=== PATIENT | female | born 1970 | race Caucasian/White ===

== ENCOUNTER 2021-04-04 13:48 | Emergency (ER) | payer BC, SELFPAY ==
[2021-04-04] VITALS (7 sets, daily range): BP systolic 91–106; BP diastolic 58–67; PULSE 84–103; RESP 15–20; TEMP 39.5; O2SAT 95–98; BMI 22.1
--- NOTE | 2021-04-04 14:27 | XR_ITS ---
WS: [id number] Portable AP upright chest, 04/04/2021 Clinical Data: COVID/SOB Comparison: PA and lateral chest, 11/07/2015. Findings: No nodules, masses or effusions are seen. The heart is normal. The pulmonary vascularity is not increased. No pneumonia or pneumothorax is seen. Monitor leads are on the chest wall. XR/XR chest 1V portable [id number] Impression: Negative chest.
--- NOTE | 2021-04-04 15:08 | ED_ITS ---
HPI - COVID General: Chief Complaint: COVID symptoms Stated Complaint: SOB, COVID positive Time Seen by Provider: 04/04/21 15:01 Triage information: Has fever, cough or shortness of breath . Exposure to COVID + person last 14 days History of Present Illness: HPI Narrative: This patient is a 50-year-old female who is 19 and from Covid diagnosis. Presents to the emergency department for continued intermittent fevers fatigue and body aches occasional shortness of breath. Patient's pulse ox is 98% on room air does not appear to be overtly short of breath at this time. Temperature on arrival 103.1. Will do medical evaluation treat as needed. Patient has no specific cough or congestion on exam. MD complaint: known COVID positive Prior covid testing: yes, results known COVID 19 common symptoms: positive fever(s), chills, dyspnea, fatigue and body aches; negative headache(s), throat pain, nausea or vomiting COVID 19 other sytmptoms: negative chest pain Onset (ago): day(s) (10) Severity: moderate COVID Results: No Data to Display Review of Systems General: Reports: 10 or more systems reviewed and unremarkable except in HPI and below Const: Reports: fever(s), chills, body aches and fatigue Eyes: Denies: change in vision or blurry vision ENMT: Denies: throat pain, hoarseness or mouth pain Card: Denies: chest pain, palpitations, irregular heart rhythm, edema, swelling of feet/ankles or lightheadedness Resp: Reports: dyspnea GI: Denies: abdominal pain, nausea or vomiting : Denies: flank pain, difficulty voiding, dysuria, urinary frequency, urinary urgency or urinary hesitancy Musc: Reports: joint pain; Denies: neck pain, back pain, extremity pain, extremity swelling, joint swelling, joint redness, joint warmth or limited range of motion Skin/Breast: Denies: rash, pruritus, erythema or skin tenderness Neuro: Denies: headache(s), numbness in extremities or weakness in extremities Psych: Denies: anxiety or depression Physical Exam Const: COMMON NORMALS: no acute distress, average body habitus, patient oriented x3, no limitations, healthy appearing, alert and well nourished HENMT: COMMON NORMALS: normocephalic, atraumatic, hearing grossly normal bilaterally, external ears normal, EAC's normal, TM's normal bilaterally, Normal external nose present, Normal nasal mucous membranes and turbinates present, moist oral mucous membranes, oropharynx normal, dentition normal and gingiva normal HEAD & SCALP: normocephalic and atraumatic NOSE: Normal external nose present and Normal nasal mucous membranes and turbinates present EXTERNAL EAR: Yes external ears normal EXTERNAL AUDITORY CANAL: EAC's normal TYMPANIC MEMBRANE: TM's normal bilaterally Neck/C-Spine: COMMON NORMALS: full ROM, no lymphadenopathy, supple, no meningeal signs, no JVD, Thyroid normal and No carotid bruits THYROID: Thy roid normal Chest: COMMONS NORMALS: normal inspection of the chest, normal palpation of entire chest wall, normal inspection of the breasts and normal palpation of the breasts Breast/axilla inspection: Yes normal inspection of the breasts BREAST/AXILLA PALPATION: Yes normal palpation of the breasts Resp: COMMON NORMALS: normal respiratory effort, No retractions, No use of accessory muscles, clear to auscultation bilaterally and percussion normal AUSCULTATION: clear to auscultation bilaterally PERCUSSION: percussion normal Cardio: COMMON NORMALS: no JVD, regular rate, regular rhythm, S1 normal heart sound present, S2 normal heart sound present, No gallops present (Cardio), No clicks present (Cardio), No murmurs present (Cardio), No rub (Cardio) and Peripheral pulses 2+ throughout RATE: regular rate RHYTHM: regular rhythm HEART SOUNDS: S1 normal heart sound present and S2 normal heart sound present PERIPHERAL PULSES: Peripheral pulses 2+ throughout GI: COMMON NORMALS: Normal to inspection, nondistended, normoactive bowel sounds present, Soft to palpation, non-tender, No hepatosplenomegaly present, no masses and no bruits PALPATION: Yes Soft to palpation and Yes No hepatosplenomegaly present : COMMON NORMALS: Yes no CVA tenderness, Yes normal external appearance, Yes normal appearance of the vagina, Yes normal appearance of the cervix, Yes normal bimanual exam, Yes No adnexal tenderness and Yes no masses BLADDER/KIDNEY EXAM: Yes no CVA tenderness BIMANUAL EXAM - VAGINA & UTERUS: Yes normal bimanual exam Back/Pelvis: COMMON NORMALS: no CVA tenderness, thoracic and lumbar spine normal to inspection, no thoracic nor lumbar tenderness, thoraco-lumbar ROM normal and straight leg raise negative bilaterally Extremity: COMMON NORMALS: normal to inspection, full ROM, capillary refill normal, no joint enlargement, no clubbing, cyanosis or edema, no calf tenderness and no pedal edema Neuro: COMMON NORMALS: patient oriented x3 SENSORIUM/ORIENTATION: Yes alert MENINGEAL SIGNS: Yes no meningeal signs Course Reevaluation(s): Reevaluation #1: Patient appears to have a urinary tract infection. Patient was given IV Rocephin in the emergency department be discharged home on doxycycline. Patient is encouraged p.o. fluids. Take all medications as instructed. Continue to self quarantine. Follow-up with primary care physician in 2 to 3 days. Return to the emergency department symptoms fail to improve or worsen. Time: 17:52 Vital Signs: Vital signs: Vital Signs Temperature 103.1 F H 04/04/21 14:18 Pulse Rate 84 04/04/21 17:36 Respiratory Rate 16 04/04/21 17:36 Blood Pressure 106/59 04/04/21 17:00 Pulse Oximetry 95 04/04/21 17:36 MDM - COVID MDM Narrative: Medical decision making narrative: This patient is a 50-year-old female who is 19 and from Covid diagnosis. Presents to the emergency department for continued intermittent fevers fatigue and body aches occasional shortness of breath. Patient's pulse ox is 98% on room air does not appear to be overtly short of breath at this time. Temperature on arrival 103.1. Will do medical evaluation treat as needed. Patient has no specific cough or congestion on exam. Patient appears to have a urinary tract infection. Patient was given IV Rocephin in the emergency department be discharged home on doxycycline. Patient is encouraged p.o. fluids. Take all medications as instructed. Continue to self quarantine. Follow-up with primary care physician in 2 to 3 days. Return to the emergency department symptoms fail to improve or worsen. Differential Diagnosis: Differential diagnosis: Likely COVID 19 and pneumonia Medical Records: Attestation: I reviewed the patient's medical records. Lab Data: Attestation: I reviewed the patient's lab results. Labs: Lab Results 04/04/21 04/04/21 04/04/21 Range/Units 15:50 15:50 15:50 WBC 5.8 (4.0-10.0) 10^3/ uL RBC 4.53 (4.1-5.3) 10^6/u L Hgb 13.7 (11.5-15.3) g/dL Hct 40.3 (37.0-47.0) % MCV 89.0 (81-99) fL MCH 30.2 (28.0-34.0) pg MCHC 34.0 (30.0-36.0) g/dL RDW 12.8 (12.1-15.1) % Plt Count 242 (130-400) 10^3/c mm MPV 10.0 (7.4-10.4) fL Neut % (Auto) 62.5 % Lymph % (Auto) 27.8 % [place] % (Auto) 8.3 % Eos % (Auto) 0.7 % Baso % (Auto) 0.5 % Neut # (Auto) 3.62 (1.8-7.7) 10^3/u L Lymph # (Auto) 1.6 (0.8-4.8) 10^3/u L [place] # (Auto) 0.5 (0.2-0.9) 10^3/u L Eos # (Auto) 0.0 (0.0-0.8) 10^3/u L Baso # (Auto) 0.0 (0.0-0.1) 10^3/u L Nucleated RBC % (a uto) 0 % Nucleated RBCs # 0.0 /100WBC D-Dimer (0-0.59) ug/mIFE U Sodium 133 L (136-145) mmol/L Potassium 4.1 (3.5-5.1) mmol/L Chloride 97 L (98-107) mmol/L Carbon Dioxide 22 (22-29) mmol/L Anion Gap 18.1 (5-19) BUN 11 (6-20) mg/dL Creatinine 0.6 (0.5-0.9) mg/dL GFR Calculation 105.8 (90-130) mL/min Glucose 84 (65-115) mg/dL Calculated Osmolal ity 275 L (285-295) mOsm/k g Lactic Acid 0.9 (0.5-2.2) mmol/L Calcium 8.2 L (8.5-10.5) mg/dL Total Bilirubin 0.3 (0.15-1.2) mg/dL AST 21 (0-32) U/L ALT 15 (0-33) U/L Alkaline Phosphata se 89 (35-105) IU/L C-Reactive Protein 6.8 H (0.0-4.9) mg/L NT-Pro-B Natriuret Pep 10 (0-125) pg/mL Total Protein 6.7 (6.6-8.7) g/dL Albumin 4.1 (3.5-5.2) g/dL Globulin 2.6 (1.3-4.6) g/dL Procalcitonin 0.05 (0-0.5) ng/mL Urine Color (Yellow) Urine Appearance (CLEAR) Urine pH (5-7) Ur Specific Gravit y (1.005-1.030) Urine Protein (Negative) Urine Glucose (UA) (Normal) Urine Ketones (Negative) Urine Blood (Negative) Urine Nitrate (Negative) Urine Bilirubin (Negative) Urine Urobilinogen (Negative) mg/dL Ur Leukocyte Shonna ase (Negative) Urine RBC (0-2) /hpf Urine WBC (0-5) /hpf Ur Squamous Epith Cells (0-5) /hpf Amorphous Sediment Urine Bacteria (NONE) /hpf Influenza Type A A g (Negative) Influenza Type B A g (Negative) 04/04/21 04/04/21 04/04/21 Range/Units 15:55 15:58 17:30 WBC (4.0-10.0) 10^3/ uL RBC (4.1-5.3) 10^6/u L Hgb (11.5-15.3) g/dL Hct (37.0-47.0) % MCV (81-99) fL MCH (28.0-34.0) pg MCHC (30.0-36.0) g/dL RDW (12.1-15.1) % Plt Count (130-400) 10^3/c mm MPV (7.4-10.4) fL Neut % (Auto) % Lymph % (Auto) % [place] % (Auto) % Eos % (Auto) % Baso % (Auto) % Neut # (Auto) (1.8-7.7) 10^3/u L Lymph # (Auto) (0.8-4.8) 10^3/u L [place] # (Auto) (0.2-0.9) 10^3/u L Eos # (Auto) (0.0-0.8) 10^3/u L Baso # (Auto) (0.0-0.1) 10^3/u L Nucleated RBC % (a uto) % Nucleated RBCs # /100WBC D-Dimer <= 0.27 (0-0.59) ug/mIFE U Sodium (136-145) mmol/L Potassium (3.5-5.1) mmol/L Chloride (98-107) mmol/L Carbon Dioxide (22-29) mmol/L Anion Gap (5-19) BUN (6-20) mg/dL Creatinine (0.5-0.9) mg/dL GFR Calculation (90-130) mL/min Glucose (65-115) mg/dL Calculated Osmolal ity (285-295) mOsm/k g Lactic Acid (0.5-2.2) mmol/L Calcium (8.5-10.5) mg/dL Total Bilirubin (0.15-1.2) mg/dL AST (0-32) U/L ALT (0-33) U/L Alkaline Phosphata se (35-105) IU/L C-Reactive Protein (0.0-4.9) mg/L NT-Pro-B Natriuret Pep (0-125) pg/mL Total Protein (6.6-8.7) g/dL Albumin (3.5-5.2) g/dL Globulin (1.3-4.6) g/dL Procalcitonin (0-0.5) ng/mL Urine Color Yellow (Yellow) Urine Appearance Clear (CLEAR) Urine pH 6 (5-7) Ur Specific Gravit y 1.010 (1.005-1.030) Urine Protein Neg (Negative) Urine Glucose (UA) Norm (Normal) Urine Ketones Negative (Negative) Urine Blood 3+ H (Negative) Urine Nitrate Negative (Negative) Urine Bilirubin Neg (Negative) Urine Urobilinogen Norm (Negative) mg/dL Ur Leukocyte Shonna ase 2+ H (Negative) Urine RBC 25-40 H (0-2) /hpf Urine WBC 15-25 H (0-5) /hpf Ur Squamous Epith Cells 10-15 H (0-5) /hpf Amorphous Sediment Not Reportable Urine Bacteria 1+ H (NONE) /hpf Influenza Type A A g Negative (Negative) Influenza Type B A g Negative (Negative) Imaging Data: CXR: Attestation: I personally reviewed and interpreted this imaging study as follows: Radiologist's impression: Impression: Negative chest. COVID Results: No Data to Display Discharge Plan Discharge Patient Disposition: Home Clinical Impression: Viral infection, COVID-19, UTI (urinary tract infection) Condition: Stable Prescriptions: New doxycycline hyclate 100 mg capsule 100 mg PO BID 7 Days Qty: 14 RF: 0 No Action atorvastatin 40 mg tablet 40 mg PO DAILY RF: 0 Discharge Orders: Discharge ED (Routine); Ordered 04/04/21 Ordered By: Maycol Taylor Referrals: Mickey Monsivais DO [Primary Care Provider] - Discharge Diet: Advance as tolerated Discharge Activity: Increase activity as tolerated Patient Instructions: Opioid Safety Activity Restrictions/Additional Instructions: Patient appears to have a urinary tract infection. Patient was given IV Rocephin in the emergency department be discharged home on doxycycline. Patient is encouraged p.o. fluids. Take all medications as instructed. Continue to self quarantine. Follow-up with primary care physician in 2 to 3 days. Return to the emergency department symptoms fail to improve or worsen. Coding Level of Care Code ED Plate Finisher for Cheo Fwklaus Exam Comprehensive
[2021-04-04] MEDS: sodium chloride 0.9% 1,000 ML 999 ML IV (15:30)
[2021-04-04] MEDS: ibuprofen 600 mg Tablet PO (15:30)
[2021-04-04] MEDS: dexamethasone 10 mg/mL INJ IM (15:30)
[2021-04-04 16:06] LABS: Basophils % 0.5 %; Eosinophils % 0.7 %; Hematocrit 40.3 % (37.0-47.0); Hemoglobin 13.7 g/dL (11.5-15.3); Lymphocytes # 1.6 10^3/uL (0.8-4.8); Lymphocytes % 27.8 %; Mean Corpuscular Hemoglobin 30.2 pg (28.0-34.0); Monocytes # 0.5 10^3/uL (0.2-0.9); Monocytes % 8.3 %; Neutrophils # 3.62 10^3/uL (1.8-7.7); Neutrophils % 62.5 %; Nucleated Red Blood Cells % 0 %; Platelet Count 242 10^3/cmm (130-400); Red Blood Count 4.53 10^6/uL (4.1-5.3); Red Cell Distribution Width 12.8 % (12.1-15.1); White Blood Count 5.8 10^3/uL (4.0-10.0)
[2021-04-04 16:38] LABS: Lactic Sepsis W/Reflex 0.9 mmol/L (0.5-2.2)
[2021-04-04 16:38] LABS: D Dimer <= 0.27 ug/mIFEU (0-0.59)
[2021-04-04 16:48] LABS: NT Pro B Type Natriuretic Pept 10 pg/mL (0-125); Procalcitonin 0.05 ng/mL (0-0.5)
[2021-04-04 16:59] LABS: Alanine Aminotransferase 15 U/L (0-33); Albumin Level 4.1 g/dL (3.5-5.2); Alkaline Phosphatase 89 IU/L (35-105); Anion Gap 18.1 (5-19); Aspartate Amino Transferase 21 U/L (0-32); Blood Urea Nitrogen 11 mg/dL (6-20); C Reactive Protein 6.8 mg/L (0.0-4.9); Calcium 8.2 mg/dL (8.5-10.5); Carbon Dioxide 22 mmol/L (22-29); Chloride 97 mmol/L (98-107); Globulin 2.6 g/dL (1.3-4.6); Glomerular Filtration Rate 105.8 mL/min (90-130); Glucose 84 mg/dL (65-115); Osmolality Calculated 275 mOsm/kg (285-295); Potassium 4.1 mmol/L (3.5-5.1); Sodium 133 mmol/L (136-145); Total Bilirubin 0.3 mg/dL (0.15-1.2); Total Protein 6.7 g/dL (6.6-8.7)
[2021-04-04 17:01] LABS: Influenza A by IFA Negative (Negative); Influenza B by IFA Negative (Negative)
[2021-04-04 17:48] LABS: Urine Appearance Clear (CLEAR); Urine Color Yellow (Yellow); pH Urine 6 (5-7)
[2021-04-04 17:49] LABS: Add Urine Microscopic? YES; Bilirubin Urine Neg (Negative); Blood Urine 3+ (Negative); Glucose Urine UA Norm (Normal); Ketones Urine Negative (Negative); Leukocyte Esterase Urine 2+ (Negative); Nitrate Urine Negative (Negative); Protein Urine Neg (Negative); Urobilinogen Urine Norm (Negative)
[2021-04-04 17:50] LABS: Add Urine Culture? Yes; Bacteria Urine 1+ /hpf; RBC Urine 25-40 /hpf (0-2); WBC Urine 15-25 /hpf (0-5)
[2021-04-04] MEDS: cefTRIAXone 1,000 MG in lidocaine 1% 2.1 ML 2.1 MG IM (18:01)
== END 2021-04-04 18:15 | disposition home or self-care (01) ==
PROVIDERS: Physician Assistant; Emergency Provider Emergency Medicine; PCP Electrodiagnostic Medicine
DX: U07.1 COVID-19 (principal); Z20.822 Contact with and (suspected) exposure to COVID-19; B34.9 Viral infection, unspecified; N39.0 Urinary tract infection, site not specified
CPT/HCPCS: 71045; 80053; 81001; 83605; 83880; 84145; 85025; 85378; 86140; 87040; 87086; 87804; 96360; 99284; J0696; J1100; J7030

== ENCOUNTER 2021-08-20 11:25 | Emergency (ER) | payer BC, SELFPAY ==
[2021-08-20 11:40] VITALS: BP 120/76; PULSE 84; RESP 18; TEMP 36.8; O2SAT 97; BMI 23.1
[2021-08-20 11:47] VITALS: BP 120/76; PULSE 83; RESP 18; TEMP 36.8; O2SAT 97
--- NOTE | 2021-08-20 12:16 | ED_ITS ---
HPI - General Adult General: Chief complaint: Skin/Abscess/Foreign Body Stated complaint: RIGHT ARM GROWTH Time Seen by Provider: 08/20/21 11:45 History of Present Illness: HPI narrative: CC: R armpit draining abscess HPI: [51]yo patient w/ no PMH presenting to to the ED with R armpit draining abscess pain despite lancing 3 days ago. Patient first noticed the abscess 2 weeks ago has been gradually growing in the armpit. 2 days ago, patient went to an urgent care and had an I&D performed on Friday. Since then, patient was started on Bactrim for the last 2 days however has had persistent induration and drainage. No hx of hydranitis suppurativa or other hx of abscess. Today, the patient denies fever/chill, nausea/vomiting, chest pain, SOB, palpitations, GI/ complaints. No hx of immunocompromised, DM, transplant, or asplenia. Onset: 2 weeks ago Duration: 2 weeks Location: R armpit Severity: mild/moderate Review of Systems Narrative: Constitutional: No fever, no chills. HEENT: No vision changes CV: No chest pain, no palpitations PULM: No cough, no dyspnea. GI: No abdominal pain, no N/V/D. : No dysuria MSKEL: No muscle pain SKIN: +R armpit abscess NEURO: No headache, no focal weakness. HEME: No visible bruises PSYCH: Normal mood Physical Exam Narrative: EXAM NARRATIVE: Head: Atraumatic Eyes: PERRL, conjunctiva without injection ENT: Mucous membrane moist NECK: Supple without lymphadenopathy LUNGS: LCTAB CV: RRR ABDOMEN: Soft, nontender EXTREMITY: Normal ROM SKIN: +R armpit abscess swith central drainage NEURO: Awake and alert. No focal motor deficits. PSYCH: Normal mood and affect. Procedures Abscess I/D Site: upper extremity Side (if applicable): right Local Anesthetic: lidocaine 1% Amount of anesthesia used (mL): 5 Technique: incised with #11 blade Amount of fluid expressed (mL): 2 Irrigation: No Packing used?: none Course Vital Signs: Vital signs: Vital Signs Temperature 98.2 F 08/20/21 11:47 Pulse Rate 83 08/20/21 11:47 Respiratory Rate 18 08/20/21 11:47 Blood Pressure 120/76 08/20/21 11:47 Pulse Oximetry 97 08/20/21 11:47 MDM - General Adult MDM Narrative: Medical decision making narrative: [51] yo patient p/w persistent R arm pit abscess and drainage despite I&D 2 days ago and ABX. No suspicion for overlying cellulitis. Given History, Exam, and Workup I have low suspicion for Cellulitis, Necrotizing Fasciitis, Pyomyositis, Sporotrichosis, Osteomyelitis or other emergent problems as a cause for this presentation. POCUS revealed still multiple areas of abscess amenable to drainage Interventions: Patient?s abscess has been incised with acceptable resolution. Please see the procedure note for information. Patient is instructed to continue taking the full course of Bactrim as prescribed on Friday. Disposition: Discharge. Advised to follow up with a primary care physician in 48 hours. The patient given return precautions for any worsening symptoms, fever/nausea, vomiting or any new or concerning issues. Discharge Plan Discharge Patient Disposition: Home Clinical Impression: Abscess Condition: Stable Prescriptions: No Action atorvastatin 40 mg tablet 40 mg PO DAILY RF: 0 Discharge Orders: Discharge ED (Routine); Ordered 08/20/21 Ordered By: Elke Lu Referrals: Veronica Dawkins PA [Primary Care Provider] - Discharge Diet: Advance as tolerated Discharge Activity: Resume usual activity Patient Instructions: Abscess (ED) Activity Restrictions/Additional Instructions: Come back to the emergency room if your abscess worsens, have any fever or chills, any new or concerning complaints. Coding Level of Care Code ED Government Documents Librarian for Cheo Rodriguez
== END 2021-08-20 12:23 | disposition home or self-care (01) ==
PROVIDERS: Emergency Provider Emergency Medicine; PCP Physician Assistant
DX: L02.413 Cutaneous abscess of right upper limb (principal)
CPT/HCPCS: 10060; 99282

== ENCOUNTER 2022-03-07 06:42 | Outpatient (CLI) | payer BC, SELFPAY ==
--- NOTE | 2022-03-07 | USCV_ITS ---
Zoila Armendariz Age: 51 Gender: F : 1970 Exam Date: 03/07/2022 06:55 Ordering Phys: Paul Johnson MD Technologist: Exam Location: [facility] Indication: palpitations BP: 105 / 60 HR: 69 Rhythm: Sinus Technical Quality: Adequate MEASUREMENTS (Male / Female) Normal Values 2D ECHO LV Diastolic Diameter PLAX 4.0 cm 4.2 - 5.9 / 3.9 - 5.3 cm LV Systolic Diameter PLAX 2.5 cm IVS Diastolic Thickness 0.9 cm 0.6 - 1.0 / 0.6 - 0.9 cm IVS Systolic Thickness 1.3 cm LVPW Diastolic Thickness 1.0 cm 0.6 - 1.0 / 0.6 - 0.9 cm LVPW Systolic Thickness 1.1 cm LVOT Diameter 2.0 cm LV Ejection Fraction 2D Teich 69.1 % LV Ejection Fraction MOD 2C 72.3 % LV Ejection Fraction 2C AL 71.6 % LA Diameter 3.1 cm IVC Diameter 1.4 cm M-MODE Aortic Annulus Diameter 2.9 cm LA Ao Ratio MM 1.2 MV E Point Septal Separation 0.8 cm DOPPLER AV Peak Velocity 109.0 cm/s LVOT Peak Velocity 86.0 cm/s AV Area Cont Eq vti 2.6 cm squared AV Area Cont Eq pk 2.6 cm squared MV Area PHT 4.3 cm squared Mitral E to A Ratio 0.9 MV E' Velocity 32.0 cm/s Mitral E to MV E' Ratio 5.6 Mitral E to LV E' Lateral Ratio 4.8 Mitral E to LV E' Septal Ratio 6.8 TR Peak Velocity 114.0 cm/s TR Peak Gradient 5.2 mmHg TV Peak E Velocity 87.0 cm/s Right Atrial Pressure 3.0 mmHg Pulmonary Artery Systolic Pressu 8.2 mmHg PV Peak Velocity 68.0 cm/s FINDINGS Left Ventricle Normal left ventricular size. LV systolic function is normal with EF of 60-65%. No regional wall motion abnormalities. Right Ventricle The right ventricle is normal in size and function. Right Atrium The right atrium is normal in size. Left Atrium The left atrium is normal in size. Mitral Valve Structurally normal mitral valve without significant stenosis or prolapse. There is no mitral regurgitation. Aortic Valve Structurally normal aortic valve without significant sclerosis or stenosis. There is no aortic regurgitation. Tricuspid Valve Structurally normal tricuspid valve without significant stenosis. Trace tricuspid regurgitation. Insufficient TR jet to calculate RVSP Pulmonic Valve Not well visualized Pericardium Normal pericardium without effusion. Aorta Normal ascending aorta dimension. IVC CONCLUSIONS LV systolic function is normal with EF of 60-65% Trace tricuspid regurgitation No significant valvular heart disease No comparison studies are available Yamil Cade MD (Electronically Signed) Final Date: 12 Mar 2022 17:27 S
== END 2022-03-07 06:43 | disposition home or self-care (01) ==
LOC: RAD 06:42
PROVIDERS: PCP Physician Assistant; Visit Provider Orthopaedic Surgery Adult Reconstructive Orthopaedic Surgery
DX: I45.10 Unspecified right bundle-branch block (principal); I07.1 Rheumatic tricuspid insufficiency
CPT/HCPCS: 93306

== ENCOUNTER → 2022-10-09 09:40 | Outpatient (BNVA) | payer BC, SELFPAY | PROVIDERS: PCP Physician Assistant; Visit Provider Nurse Practitioner Women's Health | DX: Z11.3 Encounter for screening for infections with a predominantly sexual mode of transmission (principal); Z00.00 Encounter for general adult medical examination without abnormal findings; N76.0 Acute vaginitis; B96.89 Other specified bacterial agents as the cause of diseases classified elsewhere | CPT/HCPCS: 87491; 87591; 87624; 87661 ==

== ENCOUNTER 2024-05-24 15:35 | Inpatient (IN) | payer BC, SELFPAY ==
[2024-05-24 15:45] VITALS: BP 119/60; PULSE 89; RESP 17; TEMP 36.7; O2SAT 97; BMI 23.7
[2024-05-24 17:10] LABS: Basophils # 0.1 10^3/uL (0.0-0.1); Basophils % 0.8 %; Eosinophils # 0.5 10^3/uL (0.0-0.8); Hematocrit 37.7 % (36-47); Lymphocytes # 2.5 10^3/uL (0.8-4.8); Lymphocytes % 21.4 %; Mean Corpuscular HGB Conc 32.6 g/dL (30-55); Mean Corpuscular Hemoglobin 30.3 pg (27-33); Mean Corpuscular Volume 92.9 fl (85-98); Mean Platelet Volume 9.4 fL (7.4-10.4); Monocytes % 8.6 %; Neutrophils # 7.72 10^3/uL (1.8-7.7); Neutrophils % 64.9 %; Nucleated Red Blood Cells % 0 %; Platelet Count 321 10^3/cmm (157-399); Red Blood Count 4.06 10^6/uL (3.85-5.65); Red Cell Distribution Width 11.9 % (12.1-15.1); White Blood Count 11.89 10^3/uL (3.29-11.43)
[2024-05-24 17:31] LABS: Alanine Aminotransferase 11 U/L (0-33); Alkaline Phosphatase 84 U/L (35-105); Anion Gap 12.5 (5-19); Aspartate Amino Transferase 12 U/L (0-32); Blood Urea Nitrogen 14 mg/dL (6-20); Carbon Dioxide 27 mmol/L (22-29); Chloride 103 mmol/L (98-107); Creatinine Clr Calc Pharmacy 79.0028; Globulin 2.9 g/dL (1.3-4.6); Glomerular Filtration Rate 74.7 mL/min (90-130); Glucose 109 mg/dL (65-115); Osmolality Calculated 287 mOsm/kg (285-295); Potassium 4.5 mmol/L (3.5-5.1); Sodium 138 mmol/L (136-145); Total Bilirubin 0.2 mg/dL (0.15-1.2); Total Protein 6.9 g/dL (6.6-8.7)
[2024-05-24 19:05] VITALS: BP 98/77; PULSE 64; RESP 16; O2SAT 100
--- NOTE | 2024-05-24 19:05 | CTR_ITS ---
PROCEDURE INFORMATION: Exam: CT Abdomen And Pelvis With Contrast Exam date and time: 05/24/2024 8:09 PM Age: 54 years old Clinical indication: Abdominal pain; Prior surgery; Surgery date: 1-6 months; Surgery type: Tummy tuck, ; Additional info: Post-op drainage, pain TECHNIQUE: Imaging protocol: Computed tomography of the abdomen and pelvis with contrast. Radiation optimization: All CT scans at this facility use at least one of these dose optimization techniques: automated exposure control; mA and/or kV adjustment per patient size (includes targeted exams where dose is matched to clinical indication); or iterative reconstruction. Contrast material: OMNI 350; Contrast volume: 100 ml; Contrast route: INTRAVENOUS (IV); COMPARISON: CR XR pelvis 1-2V* [id number] 05/05/2019 12:38 PM RADIATION DOSE METRICS: Total DLP (mGy-cm): 603.13 FINDINGS: Liver: Normal. No mass. Gallbladder and biliary ducts: Normal. No calcified stones. No ductal dilation. Pancreas: Normal. No ductal dilation. Spleen: Normal. No splenomegaly. Adrenal glands: Normal. No mass. Kidneys and ureters: Normal. No hydronephrosis. Stomach and bowel: Unremarkable. No obstruction. No mucosal thickening. Appendix: No evidence of appendicitis. Intraperitoneal space: See Soft tissues finding. Vasculature: Unremarkable. No abdominal aortic aneurysm. Lymph nodes: Unremarkable. No enlarged lymph nodes. Urinary bladder: Unremarkable as visualized. Reproductive: Unremarkable as visualized. Bones/joints: Unremarkable. No acute fracture. Soft tissues: Bilateral breast prosthesis. Postsurgical changes of the abdominal wall status post abdominoplasty. There is a vertically oriented hypoattenuating collection with surrounding edema of the upper midabdomen measuring approximately 1.5 x 6.0 x 8.0 cm (AP by TV by cc). Soft tissue edema involving the lower back. Nonspecific thickening of the right paramedian rectus abdominis muscle which may represent a small hematoma or fluid collection. CT/CT abdomen pelvis w con* [id number] IMPRESSION: Postsurgical changes of the abdominal wall status post abdominoplasty. There is a vertically oriented hypoattenuating collection with surrounding edema of the upper midabdomen measuring approximately 1.5 x 6.0 x 8.0 cm. Nonspecific thickening of the right paramedian rectus abdominis muscle which may represent a small hematoma or fluid collection.
--- NOTE | 2024-05-24 19:06 | ED_ITS ---
HPI - Wound/Laceration 2 General: Chief Complaint: Wound/Laceration Stated Complaint: surgical incision opening Time Seen by Provider: 05/24/24 18:53 Source: patient Mode of arrival: ambulatory Limitations: no limitations History of Present Illness: Patient is a 54-year-old female who presents the emergency department complaining of surgical incision drainage onset past few days. Patient had a initial tummy tuck surgery in [facility] in March, and a few days ago had a revision surgery. Since late last week, she has been noting drainage and increasing pain from this suprapubic incision, states that she thinks it is reopening. She also notes she has been having intermittent fevers, currently afebrile on arrival to the emergency department. She states that it has been draining purulent material and also had some nausea and vomiting last Friday. No other symptoms or pertinent historical factors reported at this time. Onset (ago): day(s) Location: abdomen Context: other (Tummy tuck revision surgery last Friday) Associated symptoms: Reports fever(s), nausea and vomiting Review of Systems 2 General: Reports: 10 or more systems reviewed and unremarkable except in HPI and below Const: Reports: fever(s) Card: Denies: chest pain Resp: Denies: dyspnea GI: Reports: abdominal pain, nausea and vomiting; Denies: diarrhea or constipation Musc: Denies: extremity pain or joint pain Skin/Breast: Reports: erythema, skin pain, skin tenderness and surgical incision; Denies: rash Neuro: Denies: headache(s) PFSH ED 2 PFSH: Family History Grandfather Diabetes Paternal Grandmother Diabetes Paternal Father Diabetes Heart disease Hypercholesteremia Thyroid disease Mother Heart disease Hypercholesteremia Hypertension Sister Thyroid disease Denies family history of Colon cancer Ovarian cancer Breast cancer Uterine cancer Stroke Physical Exam 2 Const: COMMON NORMALS: no acute distress, average body habitus, patient oriented x3, no limitations, healthy appearing, alert and well nourished HENMT: COMMON NORMALS: normocephalic and atraumatic HEAD & SCALP: n ormocephalic and atraumatic Neck/C-Spine: COMMON NORMALS: full ROM, no lymphadenopathy, supple and no meningeal signs Resp: COMMON NORMALS: normal respiratory effort, No use of accessory muscles and clear to auscultation bilaterally AUSCULTATION: clear to auscultation bilaterally Cardio: COMMON NORMALS: regular rate and regular rhythm RATE: regular rate RHYTHM: regular rhythm GI: INSPECTION: Yes scar AUSCULTATION: Yes normoactive bowel sounds O THER: Transverse scar to suprapubic abdomen that does appear to be draining purulent material, tender to palpation, and there is moderate extension of induration and erythema with no obvious fluctuance at this time. Extremity: COMMON NORMALS: full ROM and capillary refill normal Neuro: COMMON NORMALS: patient oriented x3 SENSORIUM/ORIENTATION: Yes alert MENINGEAL SIGNS: Yes no meningeal signs Skin: COMMON NORMALS: turgor normal NARRATIVE SKIN EXAM: See GI exam GENERAL SKIN EXAM: turgor normal Course 2 Vital Signs: Vital signs: Vital Signs Temperature 98.0 F 05/24/24 15:45 Pulse Rate 64 05/24/24 19:05 Respiratory Rate 16 05/24/24 19:05 Blood Pressure 98/77 05/24/24 19:05 Pulse Oximetry 100 05/24/24 19:05 Oxygen Delivery Me thod Room Air 05/24/24 19:05 MDM - Wound/Laceration Medical Decision Making Patient presented for evaluation of draining from her wound, had 2 procedures for tummy tuck and recently had revision last Friday. Has been having fevers nausea and vomiting since late last week and drainage from her wound. Examination did reveal purulent drainage coming from the partially dehisced wound, no palpable fluctuance. Labs overall unremarkable, slight bump in her white count with left shift. CT of the abdomen comments on some postsurgical changes as well as a possible abscess with surrounding edema in the mid abdomen. I spoke with on-call surgeon, Dr. Joe, who admit the patient for observation and recommends Patito Frank at this time. Patient will be n.p.o. after midnight she is also started on fluids and nausea medication and pain medication. Spoke with Dr. Gramajo regarding patient's case. Informed patient of plan for admission and she agrees at this time. Lab Data 05/24/24 17:01 05/24/24 17:01 Radiology Impressions Abdomen/Pelvis CT 05/24/24 19:05 IMPRESSION: Postsurgical changes of the abdominal wall status post abdominoplasty. There is a vertically oriented hypoattenuating collection with surrounding edema of the upper midabdomen measuring approximately 1.5 x 6.0 x 8.0 cm. Nonspecific thickening of the right paramedian rectus abdominis muscle which may represent a small hematoma or fluid collection. Laboratory Results WBC 11.89 10^3/uL (3.29-11.43) H 05/24/24 17:01 RBC 4.06 10^6/uL (3.85-5.65) 05/24/24 17:01 Hgb 12.30 g/dL (11.27-16.99) 05/24/24 17:01 Hct 37.7 % (36-47) 05/24/24 17:01 MCV 92.9 fl (85-98) 05/24/24 17:01 MCH 30.3 pg (27-33) 05/24/24 17:01 MCHC 32.6 g/dL (30-55) 05/24/24 17:01 RDW 11.9 % (12.1-15.1) L 05/24/24 17:01 Plt Count 321 10^3/cmm (157-399) 05/24/24 17:01 MPV 9.4 fL (7.4-10.4) 05/24/24 17:01 Neut % (Auto) 64.9 % 05/24/24 17:01 Lymph % (Auto) 21.4 % 05/24/24 17:01 [place] % (Auto) 8.6 % 05/24/24 17:01 Eos % (Auto) 4.0 % 05/24/24 17:01 Baso % (Auto) 0.8 % 05/24/24 17:01 Neut # (Auto) 7.72 10^3/uL (1.8-7.7) H 05/24/24 17:01 Lymph # (Auto) 2.5 10^3/uL (0.8-4.8) 05/24/24 17:01 [place] # (Auto) 1.0 10^3/uL (0.2-0.9) H 05/24/24 17:01 Eos # (Auto) 0.5 10^3/uL (0.0-0.8) 05/24/24 17:01 Baso # (Auto) 0.1 10^3/uL (0.0-0.1) 05/24/24 17:01 Nucleated RBC % (auto) 0 % 05/24/24 17:01 Nucleated RBCs # 0.0 /100WBC 05/24/24 17:01 Sodium 138 mmol/L (136-145) 05/24/24 17:01 Potassium 4.5 mmol/L (3.5-5.1) 05/24/24 17:01 Chloride 103 mmol/L (98-107) 05/24/24 17:01 Carbon Dioxide 27 mmol/L (22-29) 05/24/24 17:01 Anion Gap 12.5 (5-19) 05/24/24 17:01 BUN 14 mg/dL (6-20) 05/24/24 17:01 Creatinine 0.8 mg/dL (0.5-0.9) 05/24/24 17:01 GFR Calculation 74.7 mL/min (90-130) L 05/24/24 17:01 Glucose 109 mg/dL (65-115) 05/24/24 17:01 Calculated Osmolality 287 mOsm/kg (285-295) 05/24/24 17:01 Calcium 9.0 mg/dL (8.5-10.5) 05/24/24 17:01 Total Bilirubin 0.2 mg/dL (0.15-1.2) 05/24/24 17:01 AST 12 U/L (0-32) 05/24/24 17:01 ALT 11 U/L (0-33) 05/24/24 17:01 Alkaline Phosphatase 84 U/L (35-105) 05/24/24 17:01 Total Protein 6.9 g/dL (6.6-8.7) 05/24/24 17:01 Albumin 4.0 g/dL (3.5-5.2) 05/24/24 17:01 Globulin 2.9 g/dL (1.3-4.6) 05/24/24 17:01 Urine Color Yellow (Yellow) 05/24/24 19:18 Urine Appearance Clear (CLEAR) 05/24/24 19:18 Urine pH 7 (5-7) 05/24/24 19:18 Ur Specific [place] 1.010 (1.005-1.030) 05/24/24 19:18 Urine Protein Neg (Negative) 05/24/24 19:18 Urine Glucose (UA) Norm (Normal) 05/24/24 19:18 Urine Ketones Negative (Negative) 05/24/24 19:18 Urine Blood Neg (Negative) 05/24/24 19:18 Urine Nitrate Negative (Negative) 05/24/24 19:18 Urine Bilirubin Neg (Negative) 05/24/24 19:18 Urine Urobilinogen Norm mg/dL (Negative) 05/24/24 19:18 Ur Leukocyte Esterase Negative (Negative) 05/24/24 19:18 All radiology interpretation(s) finalized by discharge Discharge Plan Discharge Patient Disposition: Placed in Observation Clinical Impression: Abscess, intra-abdominal, postoperative Coding Level of Care Code ED Refrigeration Unit Repairer for Cheo Rodriguez
[2024-05-24 19:25] LABS: Add Urine Microscopic? NO; Charge for UA Resulting for Rev
[2024-05-24 19:27] LABS: Bilirubin Urine Neg (Negative); Blood Urine Neg (Negative); Glucose Urine UA Norm (Normal); Ketones Urine Negative (Negative); Leukocyte Esterase Urine Negative (Negative); Nitrate Urine Negative (Negative); Protein Urine Neg (Negative); Urine Appearance Clear (CLEAR); Urine Color Yellow (Yellow); Urobilinogen Urine Norm (Negative); pH Urine 7 (5-7)
[2024-05-24] MEDS: sodium chloride 0.9% 1,000 ML 999 ML IV (20:02)
[2024-05-24] MEDS: cefTRIAXone 1,000 mg SDV 1000 MG IVP (20:04)
[2024-05-24] MEDS: iohexol 350 mg/mL 500 mL Btl (per mL) IV (20:16)
[2024-05-24] MEDS: piperacillin-tazobactam 3.375 GM in sodium chloride 0.9% (plus) 50 ML IV (21:34)
[2024-05-24 21:42] VITALS: BP 120/80; PULSE 72; RESP 16; O2SAT 98
[2024-05-24] MEDS: vancomycin 1,000 MG in sodium chloride 0.9% 250 ML 250 MG IV (21:52)
[2024-05-24 23:40] VITALS: BP 124/62; PULSE 71; RESP 16; TEMP 36.8; O2SAT 98
[2024-05-24 23:46] VITALS: BMI 23.3
[2024-05-25] VITALS (14 sets, daily range): BP systolic 93–124; BP diastolic 58–71; PULSE 71–105; RESP 16–18; TEMP 36.2–36.9; O2SAT 92–100
[2024-05-25] MEDS: sodium chloride 0.9% 1,000 ML 100 ML IV ×3 (00:26→17:54)
[2024-05-25] MEDS: diphenhydrAMINE 50 mg/mL SDV 1mL IVP (00:26)
[2024-05-25 05:39] LABS: Basophils # 0.1 10^3/uL (0.0-0.1); Basophils % 0.8 %; Eosinophils # 0.5 10^3/uL (0.0-0.8); Eosinophils % 5.2 %; Hematocrit 35.2 % (36-47); Lymphocytes # 2.7 10^3/uL (0.8-4.8); Lymphocytes % 25.5 %; Mean Corpuscular Hemoglobin 30.4 pg (27-33); Mean Corpuscular Volume 92.4 fl (85-98); Mean Platelet Volume 9.4 fL (7.4-10.4); Monocytes % 9.1 %; Neutrophils # 6.16 10^3/uL (1.8-7.7); Neutrophils % 59.1 %; Nucleated Red Blood Cells % 0 %; Platelet Count 284 10^3/cmm (157-399); Red Blood Count 3.81 10^6/uL (3.85-5.65); White Blood Count 10.41 10^3/uL (3.29-11.43)
[2024-05-25 06:04] LABS: Alanine Aminotransferase 7 U/L (0-33); Albumin Level 3.1 g/dL (3.5-5.2); Alkaline Phosphatase 93 U/L (35-105); Aspartate Amino Transferase 12 U/L (0-32); Blood Urea Nitrogen 11 mg/dL (6-20); Calcium 8.3 mg/dL (8.5-10.5); Carbon Dioxide 21 mmol/L (22-29); Chloride 111 mmol/L (98-107); Creatinine Clr Calc Pharmacy 90.2889; Globulin 2.7 g/dL (1.3-4.6); Glomerular Filtration Rate 87.2 mL/min (90-130); Glucose 102 mg/dL (65-115); Osmolality Calculated 292 mOsm/kg (285-295); Sodium 141 mmol/L (136-145); Total Bilirubin 0.2 mg/dL (0.15-1.2); Total Protein 5.8 g/dL (6.6-8.7)
[2024-05-25] MEDS: piperacillin-tazobactam 3.375 GM in sodium chloride 0.9% (plus) 50 ML IV ×3 (06:08→22:01)
--- NOTE | 2024-05-25 09:20 | PC.CHAP ---
Pastoral Care Encounter/Spiritual Assessment Type of Contact [] Declined nuclear technologist visit [] Patient/Family/Request visit [] Outpatient visit [] Follow-up visit [] Physician referral [] Code/Alert [x] Routine visit [] Staff referral [] Actively dying [] Patient sleeping [] Family support [] [] Out of room [] Palliative care [] [] Receiving care in room [] Pre-surgical visit [] Trauma [] Long length of stay [] ICU visit [] Other: Relational/Emotional Strength [x] Patient feels connected with others/family/visitors/staff [] Distress [] Loneliness/isolation [] Abandonment Spirituality of Patient [x] Person of Beatriz [] Attends Sikh of their Beatriz [x] Believes in Prayer [] Reads Bible or Church materials [] There are Spiritual issues to be addressed Neurology Stroke Physician Interventions [x] Prayer [x] Active listening [] Non-anxious presence [x] Spiritual/emotional support [] Crisis/trauma care [] Spiritual counseling [] Bereavement support [] Provided bereavement packet [] Provided Bible/devotional materials [] Provided toy/stuffed animal, coloring book to patient or family member [] Provided Communion [] Anointing/[place] [] Salvation [x] Completed spiritual assessment [] Other: Impact on Illness or Injury [] Angry [] Fearful [] Anxious [] Often cries [] Exhaustion [] Unable to work [] Unable to attend spiritism [] Unable to walk/stand [] Unable to read [] Unable to drive [] Unable to eat/drink [] Unable to sleep [] Unable to be with family [] Patient intubated [] Other: Summary Time spent with patient 5 min
--- NOTE | 2024-05-25 12:47 | P.ANESASSM_ITS ---
Pre-Anesthetic Assessment Height/Weight: Height 1.69 m Weight 66.678 kg Temp Pulse Resp BP Pulse Ox O2 Del Method 98.0 F 72 16 108/71 96 Room Air 05/25/24 11:14 05/25/24 11:14 05/25/24 11:14 05/25/24 11:14 05/25/24 11:14 05/25/24 11:14 Operation Date: 05/25/24 14:00 Proposed Procedures p Incision And Drainage(Not Applicable) - Mxax Joe DO Familial anesthetic complications: Low BP post-op Was Beta Linda taken within 24 hours: N/A Was Clonidine taken within 24 hours: N/A Last intake: Intake Last Liquid Date 05/24/24 Last Liquid Time 23:45 Last Solid Date 05/24/24 Last Solid Time 23:45 Social No alcohol and No tobacco Exam alert, oriented x 3, clear to auscultation bilaterally and regular rate & rhythm Airway Mallampati: Class I Dentition: chipped CV/HEM Arrythmia (negative cardiac workup) Anesthetic Plan ASA status: 1 Anesthesia: General Risk of > 500 ml blood loss (7ml/kg in children): No Medications/Allergies Home Medications Medication Instructions Recorded Confirmed Last Taken Type No Known Home Medications 05/25/24 05/25/24 Unknown History Allergies Allergy/AdvReac Type Severity Reaction Status Date / Time acetaminophen Allergy ADR-Nausea Verified 10/09/22 08:02 [From Darvocet-N] codeine Allergy ADR-Itching Verified 10/09/22 08:02 propoxyphene Allergy ADR-Nausea Verified 10/09/22 08:02 [From Darvocet-N] Current Medications Generic Name Dose Route Start Last Admin Trade Name Freq PRN Reason Stop Dose Admin Sodium Chloride 1,000 mls @ 100 mls/hr 05/24/24 23:27 05/25/24 08:56 Sodium Chloride 0.9% IV 100 mls/hr .Q10H ANAM Administration PFSH Anesthesia Family History Grandfather Diabetes Paternal Grandmother Diabetes Paternal Father Diabetes Heart disease Hypercholesteremia Thyroid disease Mother Heart disease Hypercholesteremia Hypertension Sister Thyroid disease Denies family history of Colon cancer Ovarian cancer Breast cancer Uterine cancer Stroke Data Anesthesia 05/25/24 05:15 05/25/24 05:15 Short CBC 05/24/24 05/25/24 Range/Units 17:01 05:15 WBC 11.89 H 10.41 (3.29-11.43) 10^3/uL Hgb 12.30 11.60 (11.27-16.99) g/dL Hct 37.7 35.2 L (36-47) % MCV 92.9 92.4 (85-98) fl Plt Count 321 284 (157-399) 10^3/cmm Neut % (Auto) 64.9 59.1 % Neut # (Auto) 7.72 H 6.16 (1.8-7.7) 10^3/uL BMP 05/24/24 05/25/24 17:01 05:15 Sodium 138 141 Potassium 4.5 4.0 Chloride 103 111 H Carbon Dioxide 27 21 L BUN 14 11 Creatinine 0.8 0.7 Glucose 109 102 Calcium 9.0 8.3 L Liver Function 05/24/24 05/25/24 Range/Units 17:01 05:15 Total Bilirubin 0.2 0.2 (0.15-1.2) mg/dL AST 12 12 (0-32) U/L ALT 11 7 (0-33) U/L Alkaline Phosphatase 84 93 (35-105) U/L Albumin 4.0 3.1 L (3.5-5.2) g/dL Urine 05/24/24 Range/Units 19:18 Urine Color Yellow (Yellow) Urine Appearance Clear (CLEAR) Urine pH 7 (5-7) Ur Specific [place] 1.010 (1.005-1.030) Urine Protein Neg (Negative) Urine Glucose (UA) Norm (Normal) Urine Ketones Negative (Negative) Urine Nitrate Negative (Negative) Urine Bilirubin Neg (Negative) Ur Leukocyte Esterase Negative (Negative) Microbiology 05/24/24 18:28 Blood Culture - Preliminary Blood SPECIMEN COLLECTED 05/24/24 19:32 Blood Culture - Preliminary Blood SPECIMEN COLLECTED Cardiac Studies: 2 Echocardiogram 03/07/22 Holter Monitor 02/18/22
[2024-05-25] MEDS: sodium chloride 0.9% 1,000 ML 30 ML IV (12:59)
--- NOTE | 2024-05-25 13:23 | P.HP_ITS ---
Providers/Chief Complaint 2 Admitting Physician: Maxx Joe DO Primary Care Provider: Veronica Dawkins Chief Complaint: surgical incision re-opening History of Present Illness Zoila Armendariz is a 54 year old female presented to the hospital 1 week [place]. She reports that 3 and 4 days ago she felt feverish and then began draining bloody clear yellow and somewhat thick fluid from the midline aspect of her Pfannenstiel incision. She denies any nausea or emesis. She has some pain at this incision which is sharp and constant and does not radiate. Palpation makes pain worse. Not makes pain better. CT the abdomen pelvis shows a fluid collection in the abdominal wall over the epigastrium draining down to an inflamed area at the center of the Pfannenstiel incision. Review of Systems 2 General: Reports: 10 or more systems reviewed and unremarkable except in HPI and below Medications/Allergies Home Medications Medication Instructions Recorded Confirmed Last Taken Type No Known Home Medications 05/25/24 05/25/24 Unknown History Allergies Allergy/AdvReac Type Severity Reaction Status Date / Time acetaminophen Allergy ADR-Nausea Verified 10/09/22 08:02 [From Darvocet-N] codeine Allergy ADR-Itching Verified 10/09/22 08:02 propoxyphene Allergy ADR-Nausea Verified 10/09/22 08:02 [From Darvocet-N] PFSH Acute 2 PFSH: Family History Grandfather Diabetes Paternal Grandmother Diabetes Paternal Father Diabetes Heart disease Hypercholesteremia Thyroid disease Mother Heart disease Hypercholesteremia Hypertension Sister Thyroid disease Denies family history of Colon cancer Ovarian cancer Breast cancer Uterine cancer Stroke Vitals/I&O/Wt Last Vital Signs Temp 98.0 F 05/25/24 11:14 Pulse 72 05/25/24 11:14 Resp 16 05/25/24 11:14 BP 108/71 05/25/24 11:14 Pulse Ox 96 05/25/24 11:14 O2 Del Method Room Air 05/25/24 11:14 05/24/24 05/25/24 05/25/24 22:59 06:59 14:59 Intake Total 1050 / 1050 800 / 1850 850 / 850 Output Total 300 / 300 1300 / 1300 Balance 1050 / 1050 500 / 1550 -450 / -450 Weight last 48 hrs Weight 147 lb Weight 147 lb Physical Exam 2 Narrative: General : Patient is well developed , no acute distress, oriented x3 Head : Normal cephalic, a-traumatic. Ears : Pinnae and external canal are normal. Hearing is normal. Eyes : PERRLA, Sclera and injection are normal. No conjunctival discharge. Nose : Mucous membranes are without erythema. Throat : buccal mucosa is normal, gums are without significant recession or hypertrophy. Lungs : Equal chest rise bilaterally, no use of accessory muscles, trachea is midline. Cor : Rate and rhythm are normal. Abdomen : Soft, ND, mild tenderness to palpation over a small wound dehiscence at the center of her Pfannenstiel incision. There is surrounding erythema and some serous drainage. There is also fluctuance over her epigastrium no g/r/m Extremities : No edema, no cyanosis or clubbing, dorsalis pedis pulses are present bilaterally, non-tender to palpation of calves. Upper extremities are normal bilaterally. Back : non-tender to palpation, no CVA tenderness. Neuro : CN II - XII intact, Upper and lower extremities have equal and full strength Data 05/25/24 05:15 05/25/24 05:15 Micro: Microbiology 05/24/24 18:28 Blood Culture - Preliminary Blood SPECIMEN COLLECTED 05/24/24 19:32 Blood Culture - Preliminary Blood SPECIMEN COLLECTED A&P Assessment and plan (1) Abscess, intra-abdominal, postoperative: (2) Wound infection: Plan Postop complication following [place] abdominal [place] for incision and drainage of abdominal wall abscess The risks and benefits of the procedure, including but not limited to, bleeding, infection, scar, numbness, pain, further dehiscence, need for further surgery, were explained to the patient. She is understand the risks and wished to proceed Antibiotics and pain control Attestations 2 Medical Necessity Statement*: Patient requires at least 1 night in the hospital for IV antibiotics and pain control following incision and drainage of an infected surgical wound Coding Level of Care Code 46489 Diagnoses Abscess, intra-abdominal, postoperative T81.43XA; K65.1 Wound infection T14.8XXA; L08.9
[2024-05-25] MEDS: lidocaine-epi 2% PF 1:200,000 20 mL SDV XX (13:56)
--- NOTE | 2024-05-25 14:07 | PM.OP ---
Operative Report Date of procedure: May 25, 2024 Pre-op diagnosis: Abdominal wound Abdominal wall abscess Post-op diagnosis: same Procedure done: Incision and drainage of abdominal wall abscess Sharp excisional debridement of abdominal wound-debridement of skin and subcutaneous tissue measuring 10 cm x 2 cm x 0.9 cm deep Implants: 10 [place] Jamal drain Specimens removed/disposition: None Surgeon: Maxx Joe DO Anesthesia: General and Local Estimated blood loss (mL): 5 Complications: None apparent Brief History: This is a very pleasant 54-year-old female who presents to the hospital with abdominal pain and drainage. She underwent abdominoplasty in [facility] and then a revision of the abdominoplasty 1 week ago today. 4 days ago she started developing fevers and drainage from her Pfannenstiel incision. CT abdomen pelvis showed possible abscess forming in the abdominal wall over the epigastrium. Incision and drainage was indicated. The risks and benefits were explained and documented. Procedure: Patient was wheeled out room placed on the OR table in the supine position. General endotracheal ovation was achieved by department esthesia. The abdomen was inspected prepped and draped in usual sterile fashion. A timeout was performed. All present were in agreement. Sharp excisional debridement of infected surgical wound at her Pfannenstiel incision was performed with electrocautery and Adson's. Significant exudate was removed. Wound measured 10 cm x 2 cm x 0.9 cm deep and went to the subcutaneous tissue. 2% lidocaine with epinephrine was used to anesthetize the skin over the surgically created bellybutton. A 15 blade scalpel was used to make a 5 mm incision. A tonsil was then used to probe under the skin up into the fluid pocket over the epigastrium. Serous fluid was expelled. A 10 [place] Jamal drain was then placed into this pocket and sewn into place using a 3-0 silk. Dry bandages were applied. Patient tolerated procedure well.
[2024-05-25] MEDS: diphenhydrAMINE 50 mg/mL SDV 1mL 25 MG IVP (14:40)
--- NOTE | 2024-05-25 14:45 | ANE.PACU2 ---
Inpatient post-anesthesia follow up: Airway intact: Yes Vital signs: Temperature 97.8 F Pulse Rate 88 Respiratory Rate 16 Blood Pressure 104/65 Pulse Oximetry 95 Oxygen Delivery Me thod Room Air Oxygen Flow Rate 10 Fraction of Inspir ed Oxygen Hydration adequate: Yes Nausea and vomiting: No Pain level: 1 Mental status: Baseline
[2024-05-26] VITALS: BP 96/60; PULSE 93; RESP 17; TEMP 36.7; O2SAT 94
[2024-05-26 04:00] VITALS: BP 97/58; PULSE 88; RESP 16; TEMP 36.6; O2SAT 98
[2024-05-26] MEDS: piperacillin-tazobactam 3.375 GM in sodium chloride 0.9% (plus) 50 ML IV ×2 (06:08→14:35)
[2024-05-26] MEDS: sodium chloride 0.9% 1,000 ML 100 ML IV ×2 (06:09→16:00)
[2024-05-26 07:55] VITALS: BP 95/54; PULSE 86; RESP 18; TEMP 36.3; O2SAT 96
[2024-05-26 12:34] VITALS: BP 90/52; PULSE 91; RESP 18; TEMP 36.4; O2SAT 97
--- NOTE | 2024-05-26 17:14 | P.DS_ITS ---
Discharge Providers Date of Admission: 05/24/24 21:42 Date of Discharge: May 26, 2024 Attending Provider at Admission: Maxx Joe DO Attending Provider at Discharge: Maxx Joe DO Primary Care Provider: Veronica Dawkins Diagnoses at Discharge Discharge Diagnosis (1) Abscess, intra-abdominal, postoperative: Status: Acute (2) Wound infection: Status: Acute Reason for Visit Reason for Visit: surgical incision re-opening Hospital Course Hospital Course This is a very pleasant 54-year-old female came to the hospital with a surgical wound infection. She underwent abdominoplasty in [facility] with a revision of that surgery 1 week ago. She showed up with possible abscess in her abdominal wall along with a wound infection of her Pfannenstiel incision. She underwent debridement of the Pfannenstiel incision and drainage of the abscess. She did well postoperatively and was discharged home with a drain and antibiotics on postoperative day #1 Physical Exam Narrative: General : Patient is well developed , no acute distress, oriented x3 Head : Normal cephalic, a-traumatic. Ears : Pinnae and external canal are normal. Hearing is normal. Eyes : PERRLA, Sclera and injection are normal. No conjunctival discharge. Nose : Mucous membranes are without erythema. Throat : buccal mucosa is normal, gums are without significant recession or hypertrophy. Lungs : Equal chest rise bilaterally, no use of accessory muscles, trachea is midline. Cor : Rate and rhythm are normal. Abdomen : Soft, ND, appropriately tender, minimal erythema/exudate to Pfannenstiel incision, drain mostly sanguinous Extremities : No edema, no cyanosis or clubbing, dorsalis pedis pulses are present bilaterally, non-tender to palpation of calves. Upper extremities are normal bilaterally. Back : non-tender to palpation, no CVA tenderness. Neuro : CN II - XII intact, Upper and lower extremities have equal and full strength Discharge Data Studies Completed and Pending Completed Studies During Hospitalization Category Date Time Status CT abdomen pelvis w con* [id number] Urgent Cat Scan 05/24/24 19:05 Completed Pending at discharge Category Date Time Status Blood Culture Stat Lab 05/24/24 18:28 Results Wound Culture Stat Lab 05/24/24 19:18 Results Radiology Impressions Abdomen/Pelvis CT 05/24/24 19:05 IMPRESSION: Postsurgical changes of the abdominal wall status post abdominoplasty. There is a vertically oriented hypoattenuating collection with surrounding edema of the upper midabdomen measuring approximately 1.5 x 6.0 x 8.0 cm. Nonspecific thickening of the right paramedian rectus abdominis muscle which may represent a small hematoma or fluid collection. Laboratory Results WBC 10.41 10^3/uL (3.29-11.43) 05/25/24 05:15 RBC 3.81 10^6/uL (3.85-5.65) L 05/25/24 05:15 Hgb 11.60 g/dL (11.27-16.99) 05/25/24 05:15 Hct 35.2 % (36-47) L 05/25/24 05:15 MCV 92.4 fl (85-98) 05/25/24 05:15 MCH 30.4 pg (27-33) 05/25/24 05:15 MCHC 33.0 g/dL (30-55) 05/25/24 05:15 RDW 12.0 % (12.1-15.1) L 05/25/24 05:15 Plt Count 284 10^3/cmm (157-399) 05/25/24 05:15 MPV 9.4 fL (7.4-10.4) 05/25/24 05:15 Neut % (Auto) 59.1 % 05/25/24 05:15 Lymph % (Auto) 25.5 % 05/25/24 05:15 [place] % (Auto) 9.1 % 05/25/24 05:15 Eos % (Auto) 5.2 % 05/25/24 05:15 Baso % (Auto) 0.8 % 05/25/24 05:15 Neut # (Auto) 6.16 10^3/uL (1.8-7.7) 05/25/24 05:15 Lymph # (Auto) 2.7 10^3/uL (0.8-4.8) 05/25/24 05:15 [place] # (Auto) 1.0 10^3/uL (0.2-0.9) H 05/25/24 05:15 Eos # (Auto) 0.5 10^3/uL (0.0-0.8) 05/25/24 05:15 Baso # (Auto) 0.1 10^3/uL (0.0-0.1) 05/25/24 05:15 Nucleated RBC % (auto) 0 % 05/25/24 05:15 Nucleated RBCs # 0.0 /100WBC 05/25/24 05:15 Sodium 141 mmol/L (136-145) 05/25/24 05:15 Potassium 4.0 mmol/L (3.5-5.1) 05/25/24 05:15 Chloride 111 mmol/L (98-107) H 05/25/24 05:15 Carbon Dioxide 21 mmol/L (22-29) L 05/25/24 05:15 Anion Gap 13.0 (5-19) 05/25/24 05:15 BUN 11 mg/dL (6-20) 05/25/24 05:15 Creatinine 0.7 mg/dL (0.5-0.9) 05/25/24 05:15 GFR Calculation 87.2 mL/min (90-130) L 05/25/24 05:15 Glucose 102 mg/dL (65-115) 05/25/24 05:15 Calculated Osmolality 292 mOsm/kg (285-295) 05/25/24 05:15 Calcium 8.3 mg/dL (8.5-10.5) L 05/25/24 05:15 Total Bilirubin 0.2 mg/dL (0.15-1.2) 05/25/24 05:15 AST 12 U/L (0-32) 05/25/24 05:15 ALT 7 U/L (0-33) 05/25/24 05:15 Alkaline Phosphatase 93 U/L (35-105) 05/25/24 05:15 Total Protein 5.8 g/dL (6.6-8.7) L 05/25/24 05:15 Albumin 3.1 g/dL (3.5-5.2) L 05/25/24 05:15 Globulin 2.7 g/dL (1.3-4.6) 05/25/24 05:15 Urine Color Yellow (Yellow) 05/24/24 19:18 Urine Appearance Clear (CLEAR) 05/24/24 19:18 Urine pH 7 (5-7) 05/24/24 19:18 Ur Specific [place] 1.010 (1.005-1.030) 05/24/24 19:18 Urine Protein Neg (Negative) 05/24/24 19:18 Urine Glucose (UA) Norm (Normal) 05/24/24 19:18 Urine Ketones Negative (Negative) 05/24/24 19:18 Urine Blood Neg (Negative) 05/24/24 19:18 Urine Nitrate Negative (Negative) 05/24/24 19:18 Urine Bilirubin Neg (Negative) 05/24/24 19:18 Urine Urobilinogen Norm mg/dL (Negative) 05/24/24 19:18 Ur Leukocyte Esterase Negative (Negative) 05/24/24 19:18 Procedures Performed Sharp excisional debridement of surgical wound Incision and drainage of abdominal wall abscess Vitals Last Vital Signs Temp 97.6 F 05/26/24 12:34 Pulse 91 05/26/24 12:34 Resp 18 05/26/24 12:34 BP 90/52 05/26/24 12:34 Pulse Ox 97 05/26/24 12:34 O2 Del Method Room Air 05/26/24 12:34 O2 Flow Rate 10 05/25/24 14:16 Discharge Plan Discharge Patient Disposition: Home Condition: Stable Prescriptions: New Bactrim DS 800-160 mg tablet 1 tab PO BID 10 Days Qty: 20 0RF Discharge Orders: Discharge Order (Routine); Ordered 05/26/24 Ordered By: Maxx Joe Referrals: Maxx Joe DO [Physician] - 06/14/24 2:35 pm (Also call the general surgery office for nurse visit next Friday to have the drain removed) Veronica Dawkins PA [Primary Care Provider] - 05/28/24 8:40 am Discharge Diet: Advance as tolerated Discharge Activity: Resume usual activity Patient Instructions: Acute Wound Care (DC), Opioid Safety, Post Anesthesia Care Activity Restrictions/Additional Instructions: Daily dry gauze dressing changes Discharge Attestations Time Spent in Discharge Care*: less than 30 min Quality Metrics Clinical Quality Measures [ No reported AMI, CVA or VTE this stay] Coding Level of Care Code Acute Code for Chg Fwd Diagnoses Abscess, intra-abdominal, postoperative T81.43XA; K65.1 Wound infection T14.8XXA; L08.9
[2024-05-26 18:06] VITALS: BP 90/52; PULSE 91; RESP 18; TEMP 36.4; O2SAT 97
[2024-05-26 18:20] VITALS: BP 99/55; PULSE 75; RESP 20; TEMP 36.5; O2SAT 99
== END 2024-05-26 18:09 | disposition home or self-care (01) | DRG 571 ==
LOC: ER 21:10 → MEDSURG 21:42
PROVIDERS: Emergency Medicine; Physician Assistant; Admitting Provider Surgery; Emergency Provider Physician Assistant; PCP Physician Assistant; Visit Provider Surgery
PROC: 0JB80ZZ Excision of Abdomen Subcutaneous Tissue and Fascia, Open Approach (ICD-10-PCS; principal; 2024-05-25 14:00)
DX: L02.211 Cutaneous abscess of abdominal wall (principal); T81.41XA Infection following a procedure, superficial incisional surgical site, initial encounter; Y99.9 Unspecified external cause status
CPT/HCPCS: 36415; 74177; 80053; 81003; 85025; 87040; 87070; 87077; 87186; 96361; 96374; 99285; J0696; J1100; J1200; J1885; J2250; J2405; J2543; J2704; J3010; J3370; J7030; J7050; Q9967

== ENCOUNTER 2024-06-10 14:12 | Outpatient (CLI) | payer BC, SELFPAY ==
--- NOTE | 2024-06-10 14:45 | CT_ITS ---
WS: [id number] CT ABDOMEN AND PELVIS WITH CONTRAST HISTORY: wound infection, tummy tuck March 30 with revision on May 25. TECHNIQUE: Imaging performed of the abdomen and pelvis with IV contrast. Single phase imaging of the abdomen. Coronal and sagittal reformats are submitted. All CT scans at [facility] use at [address] one of these dose optimization techniques: automated exposure control; mA and/or kV adjustment per patient size (includes targeted exams where dose is matched to clinical indication); or iterative re construction. IV CONTRAST: Omnipaque 350; 100 mL IV. Oral contrast: No DLP: 356.83 mGy.cm COMPARISON: 05/24/2024 Lower thorax: Lung bases are clear. Prior bilateral breast implants. Heart is normal size. Small hiat al hernia. Liver/biliary system: Normal size with no intrahepatic dilatation. Gallbladder: Normal. No gallstones or wall thickening. No pericholecystic fluid. Pancreas: Normal size pancreas and pancreatic duct. No adjacent inflammation. Spleen: Normal size spleen. No mass or infarct. Adrenal glands: Normal. Right kidney: Normal. Left kidney: Normal. Aorta: Normal. Lymphadenopathy: None. Free fluid: None. GI tract: Normal stomach. No small bowel obstruction. High density material within the colon suspicio us for medicinal tablets. There is moderate diffuse constipation. No obstruction. Abdominal wall: Postsurgical changes along the ventral abdominal wall. There is a very small superfic ial subcutaneous fluid collection in the supraumbilical location extending over a length of 6.1 cm. A P diameter of 0.8 cm and transverse diameter 3.6 cm. This suggests fluid collection has decreased in size since 05/24/2014 with. Minimal wall thickening and enhancement. There is an associated pigtail dr perdomo catheter but the pigtail is just external to the fluid collection. Pigtail drainage catheter i s coiled in the subcutaneous fat. Pelvis: No free fluid or adenopathy within the pelvis. Bones: Unremarkable. CT/CT abdomen pelvis w con* [id number] IMPRESSION: 1. Postsurgical changes of recent abdominoplasty along the ventral abdominal w all. 2. Previously described fluid collection in the supraumbilical region that und erwent recent surgical drainage is much smaller in size than on the prior study . Vertical collection now measures 0.8 x 3.6 x 6.1 cm as compared to 1.5 x 6.0 x 8.0 cm on the prior study. 3. The pigtail drainage catheter is external to the postoperative collection w hich is probably a seroma. Very little adjacent inflammation. No air in the sup raumbilical collection.
[2024-06-10] MEDS: iohexol 350 mg/mL 500 mL Btl (per mL) IV (15:31)
== END 2024-06-10 14:13 | disposition home or self-care (01) ==
LOC: RAD 14:15
PROVIDERS: PCP Physician Assistant; Visit Provider Surgery
DX: T14.8XXA Other injury of unspecified body region, initial encounter (principal); L08.9 Local infection of the skin and subcutaneous tissue, unspecified; Z98.890 Other specified postprocedural states; R22.2 Localized swelling, mass and lump, trunk
CPT/HCPCS: 74177; Q9967